=== PATIENT | female | born 1985 | race Two or more races ===

== ENCOUNTER 2023-01-11 13:58 | Emergency (ER) | payer SELFPAY ==
[2023-01-11 14:09] VITALS: BP 154/63; O2SAT 100
--- NOTE | 2023-01-11 14:46 | ED Physician Documentation ---
PD HPI LOWER EXT INJURY - Stated complaint Stated Complaint: LT THUMB LAC - Chief complaint Chief Complaint: Laceration - History obtained from History obtained from: Patient - Additional information Additional information: Right-handed woman cut a bit of the tip of her left finger at home just prior to arrival. Last tetanus was 2 years ago. PD PAST MEDICAL HISTORY - Past Medical History Past Medical History: No - Past Surgical History Past Surgical History: No - Present Medications Home Medications: Ambulatory Orders Medication Instructions Recorded Confirmed No Known Home Medications 01/11/23 01/11/23 - Allergies Allergies/Adverse Reactions: Allergies Allergy/AdvReac Type Severity Reaction Status Date / Time No Known Drug Allergies Allergy Verified 01/11/23 14:05 - Social History Does the pt smoke?: No Smoking Status: Never smoker PD ED PE NORMAL - Vitals Vital signs reviewed: Yes - General General: Alert and oriented X 3, No acute distress - Extremities Extremities: Other (She has a less than 1 cm avulsion of the side of the tip of her thumb without nail involvement.) - Neuro Neuro: Alert and oriented X 3, Normal speech Results - Vitals Vitals: Vital Signs - 24 hr 01/11/23 14:01 Temperature 37 C Heart Rate 71 Respiratory 16 Rate Blood Pressure 154/63 H O2 Saturation 100 PD Medical Decision Making - ED course ED course: Cleansed and dressed with Surgifoam and then tube gauze. She was counseled on wound care. Departure - Departure Disposition: 01 Home, Self Care Clinical Impression: Fingertip avulsion Condition: Good Record reviewed to determine appropriate education?: Yes Instructions: ED Laceration Amputation Finger Tip Open Tx Comments: You can remove the current dressing Saturday. Then wash briefly with soap and water. Apply bacitracin ointment and a fingertip Band-Aid. You will need to do this daily for a couple of weeks at which point it should be healed without issue. Return if worse. Forms: PCP List
== END 2023-01-11 15:26 | disposition home or self-care (01) ==
LOC: ED 13:58
DX: S61.012A Laceration without foreign body of left thumb without damage to nail, initial encounter (principal); W45.8XXA Other foreign body or object entering through skin, initial encounter
CPT/HCPCS: 99282; 99283

== ENCOUNTER 2023-02-28 15:00 | Outpatient (CLI) | payer MEDICAID | END 2023-02-28 15:15 | disposition home or self-care (01) | LOC: MERGE 15:00 → LAB.N 15:00 | PROVIDERS: ATTEND Nurse Practitioner | DX: Z11.1 Encounter for screening for respiratory tuberculosis (principal) | CPT/HCPCS: 81599; 86480 ==

== ENCOUNTER 2023-05-01 13:09 | Outpatient (CLI) | payer MEDICAID ==
--- NOTE | 2023-05-01 14:31 | XRAY Report ---
PROCEDURE: Thoracic Spine 3V INDICATIONS: BACK PAIN TECHNIQUE: 3 views of the thoracic spine were acquired. COMPARISON: None. FINDINGS: Bones: No fractures or dislocations. No suspicious bony lesions. 12 pairs of ribs are noted, and a ppear intact where visualized. Minimal multilevel degenerative changes with tiny anterior osteophyto sis. Soft tissues: No paravertebral stripe thickening. IMPRESSION: 1.No acute bony abnormality. 2.Minimal multilevel degenerative changes with tiny anterior osteophytosis. Reviewed by: Wilberto Goodwin MD on 05/01/2023 2:30 PM PST Approved by: Wilberto Goodwin MD on 05/01/2023 2:30 PM PST Station ID: [id number]
--- NOTE | 2023-05-01 14:47 | XRAY Report ---
PROCEDURE: Hand 3+V BL INDICATIONS: POLYARTHRALGIA TECHNIQUE: 3 views of the hand(s) acquired. COMPARISON: None. FINDINGS: Bones: No fractures or dislocations. Joint spaces are maintained. No suspicious bony lesions. Soft tissues: No suspicious soft tissue calcifications or masses. IMPRESSION: No acute bony abnormality. Joint spaces are maintained. Reviewed by: Wilberto Goodwin MD on 05/01/2023 2:46 PM PST Approved by: Wilberto Goodwin MD on 05/01/2023 2:46 PM PST Station ID: [id number]
== END 2023-05-01 13:10 | disposition home or self-care (01) ==
LOC: DI 13:09
PROVIDERS: ATTEND Physician Assistant
DX: M47.814 Spondylosis without myelopathy or radiculopathy, thoracic region (principal); G89.29 Other chronic pain; M25.541 Pain in joints of right hand; M25.542 Pain in joints of left hand

== ENCOUNTER 2023-05-06 12:42 | Outpatient (CLI) | payer MEDICAID ==
--- NOTE | 2023-05-06 21:10 | Ultrasound Report ---
PROCEDURE: Pelvic w/Transvaginal INDICATIONS: OVARIAN CYST TECHNIQUE: Real-time scanning was performed of the pelvic organs, with image documentation. Additional endovagi nal scanning was necessary due to incomplete visualization of the adnexal and endometrial structures by transabdominal scanning. COMPARISON: None. FINDINGS: Uterus: Uterus is anteverted and normal in size at 7.8 x 4.3 x 5.7 cm. The myometrium is homogeneou s. The endometrium measures 10.3 mm in combined thickness. Ovaries: The right ovary measures 2.6 x 1.4 x 2.1 cm, with a calculated ovarian volume of 4.1 cc. T he left ovary measures 3.6 x 2.4 x 2.1 cm, with a calculated ovarian volume of 9.9 cc. Simple left ov sarah cyst 1.7 x 1.9 x 1.6 cm. Other: No pathologic free abdominal or pelvic fluid. IMPRESSION: Simple left ovarian cyst. Reviewed by: Wanda Ruelas MD on 05/06/2023 9:09 PM PST Approved by: Wanda Ruelas MD on 05/06/2023 9:09 PM PST Station ID: [id number]
== END 2023-05-06 12:43 | disposition home or self-care (01) ==
LOC: DI 12:42
PROVIDERS: ATTEND Physician Assistant
DX: N83.292 Other ovarian cyst, left side (principal)

== ENCOUNTER 2023-05-17 10:33 | Outpatient (CLI) | payer MEDICAID ==
[2023-05-17 11:25] LABS: FERRITIN 35.1 ng/mL (11.0-306.8)
[2023-05-17 11:46] LABS: ESTIMATED AVERAGE GLUCOSE 105 mg/dL (70-100); HEMOGLOBIN A1c% 5.3 % (4.27-6.07)
[2023-05-21 16:08] LABS: ANTINUCLEAR ANTIBODIES IFA Negative (.)
== END 2023-05-17 10:34 | disposition home or self-care (01) ==
LOC: LAB 10:33
PROVIDERS: ATTEND Physician Assistant
DX: M25.50 Pain in unspecified joint (principal); L65.0 Telogen effluvium; Z13.0 Encounter for screening for diseases of the blood and blood-forming organs and certain disorders involving the immune mechanism; Z13.1 Encounter for screening for diabetes mellitus
CPT/HCPCS: 36415; 82607; 82728; 82746; 83036; 85651; 86038; 86140

== ENCOUNTER 2023-06-05 12:41 | Outpatient (CLI) | payer MEDICAID ==
--- NOTE | 2023-06-06 08:34 | Mammography Report ---
BILATERAL DIGITAL DIAGNOSTIC MAMMOGRAM 3D/2D WITH SPOT COMPRESSION: 06/05/2023 CLINICAL: Baseline exam. Palpable right breast lump. No prior exams were available for comparison. Both breasts are extremely dense, which lowers the sensitivity of mammography (category d />75% gland ular tissue). No significant masses, calcifications, or other findings are seen in either breast. IMPRESSION: INCOMPLETE: NEEDS ADDITIONAL IMAGING EVALUATION No mammographic evidence of malignancy. A targeted right breast ultrasound is recommended and will immediately follow. Based on the Tyrer Cuzick model (a risk assessment model) the patient's lifetime risk is 14.0% and he r 10 year risk is 1.3%. According to the ACR, ACS, and NCCN guidelines, an annual breast MRI exam sarah ng with mammogram is recommended if the patient's lifetime risk is 20% or greater. This exam was interpreted at Station ID: [id number]. NOTE: For mammograms, a report in lay terms will be sent to the patient. Approximately 15% of breast malignancies will not be visualized mammographically. In the management of a palpable breast mass, a negative mammogram must not discourage biopsy of a clinically suspicious lesion. Electronically Signed By: Hipolito Marshall M.D. slc/:06/05/2023 13:31:48 ACR BI-RADS Category 0: Incomplete 3340F PARENCHYMAL PATTERN: (VD) - The breast(s) demonstrate(s) extremely dense parenchyma, limiting the sen sitivity of mammography. BI-RADS CATEGORY: (0) - 0 Ultrasound [id number] Immediate follow-up LATERALITY: (B)
--- NOTE | 2023-06-06 08:34 | Ultrasound Report ---
LIMITED ULTRASOUND OF RIGHT BREAST: 06/05/2023 CLINICAL: Palpable right breast lump. Comparison is made to exam dated: 06/05/2023 mammogram - [facility]. Color flow and real-time ultrasound of the right breast 12 o'clock region were performed. Scott scale images of the real-time examination were reviewed. No significant abnormalities were seen sonographically in the right breast. IMPRESSION: NEGATIVE No sonographic evidence of malignancy in the region of the palpable abnormality. Exam findings were conveyed to the patient. Patient is advised to monitor for significant change. Cli nical follow-up as needed. A 3 year screening mammogram is recommended. This exam was interpreted at Station ID: [id number]. Electronically Signed By: Hipolito Marshall M.D. slc/:06/05/2023 13:41:35 Ultrasound BI-RADS: 1 Negative BI-RADS CATEGORY: (1) - 1 Mammogram [id number] 3 year screening LATERALITY: (B)
== END 2023-06-05 12:42 | disposition home or self-care (01) ==
LOC: DI 12:41
PROVIDERS: ATTEND Physician Assistant
DX: R92.343 Mammographic extreme density, bilateral breasts (principal); N63.15 Unspecified lump in the right breast, overlapping quadrants

== ENCOUNTER 2023-07-31 09:50 | Outpatient (CLI) | payer MEDICAID | END 2023-07-31 09:51 | disposition home or self-care (01) | LOC: LAB.N 09:50 | PROVIDERS: ATTEND Physician Assistant | DX: E55.9 Vitamin D deficiency, unspecified (principal) | CPT/HCPCS: 36415; 82306 ==